=== PATIENT | female | born 1960 | race Two or more races ===

== ENCOUNTER 2023-12-10 13:11 | Inpatient (IN) | payer BC, OTHER ==
[~2023-12-10] VITALS: Ht 170.2 cm; Wt 89.9 kg
[2023-12-10 14:39] LABS: Basophils # (auto) 0.1 10 ^3/uL (0-0.2); Eosinophils # (auto) 0 10 ^3/uL (0-0.8); Lymphocytes # (auto) 1.3 10 ^3/uL (0.4-5.4); Neutrophils # (auto) 6.1 10 ^3/uL (1.6-8.6); Platelet Count (auto) 303 10^3/uL (140-450)
[2023-12-10 14:41] LABS: Basophils % (auto) 0.7 % (0.0-2.0); Eosinophils % (auto) 0.5 % (0.0-7.0); Hematocrit 16.1 % (36.0-46.0); Lymphocytes % (auto) 16.8 % (10.0-50.0); Mean Corpuscular Hemoglobin 17.5 pg (28.0-32.0); Mean Corpuscular Hgb Conc. 28.5 g/dL (32.0-36.0); Mean Corpuscular Volume 61.4 fL (80.0-100.0); Monocytes # (auto) 0.4 10 ^3/uL (0-1.3); Monocytes % (auto) 5.3 % (0.0-12.0); Neutrophils % (auto) 76.7 % (37.0-80.0); Nucleated Red Blood Cells % 0.1 %; Red Blood Cells 2.62 10^6/uL (4.0-5.20)
[2023-12-10 14:50] LABS: Red Cell Distribution Width 22.3 % (11.8-14.3)
[2023-12-10 14:51] LABS: Hemoglobin 4.6 g/dL (12.2-16.2)
[2023-12-10 14:55] LABS: Alanine Aminotransferase 15 U/L (7-40); Alkaline Phosphatase 96 U/L (46-116); Anion Gap 7 (5-15); Aspartate Aminotransferase < 8 U/L (13-40); BUN/Creatinine Ratio 27.7 (10.0-20.0); Blood Urea Nitrogen 26 mg/dL (9-23); Carbon Dioxide 26 mmol/L (20-30); Chloride 109 mmol/L (98-107); Glucose 107 mg/dL (74-106); Magnesium 1.9 mg/dL (1.6-2.6); Potassium 4.3 mmol/L (3.5-5.1); Sodium 142 mmol/L (136-145)
[2023-12-10 14:56] LABS: Albumin 4.1 g/dL (3.2-4.8); Bilirubin, Total 0.4 mg/dL (0.2-1.0)
[2023-12-10 15:26] LABS: Urine Bacteria None Seen /hpf (None Seen)
[2023-12-10 15:33] LABS: Hypochromia Moderate; Ovalocytes FEW; Platelet Estimate Adequate
[2023-12-10 15:38] LABS: Urine Blood Negative /uL (Negative); Urine Clarity Turbid (Clear); Urine Color Yellow (Yellow); Urine Hyaline Cast FEW /lpf (0 - 2); Urine Mucus FEW (None Seen); Urine Protein, UAD TRACE (Negative); Urine Specific Gravity 1.022 (1.001-1.035); Urine Urobilinogen Normal (Negative); Urine WBC 3 /hpf (0 - 5); Urine pH 5.5 (5.0-9.0)
[2023-12-10 18:21] LABS: COVID19 ANTIGEN SOFIA FIA NEGATIVE (NEGATIVE)
[2023-12-10] MEDS ORDERED: MORPHINE SULFATE INJ 2 MG/ml SYRG IV PRN (18:45)
[2023-12-10] MEDS ORDERED: DOCUSATE SOD 100 MG CAP PO PRN (18:45)
[2023-12-10] MEDS ORDERED: diphenhdrAMINE HCL 50 MG/1 ML VL IV PRN (18:45)
[2023-12-10] MEDS ORDERED: NITROGLYCERIN 0.4 MG SL TAB SL PRN (18:45)
[2023-12-10] MEDS ORDERED: ACETAMINOPHEN 325 MG TAB PO PRN (18:45)
[2023-12-10] MEDS ORDERED: ONDANSETRON HCL 4 MG/2 ML VIAL IV PRN (18:45)
[2023-12-10 21:08] VITALS: BP 109/50; PULSE 95; RESP 13; TEMP 99.8
[2023-12-10 21:30] VITALS: BP 111/46; PULSE 94; RESP 16; TEMP 98.6
[2023-12-10 22:29] VITALS: PULSE 91; RESP 21; O2SAT 99
[2023-12-10] MEDS: cefTRIAXone 1GM/50ML D5W 50 ML IV ONE (23:17)
[2023-12-11] VITALS (8 sets, daily range): BP systolic 140–163; BP diastolic 78–97; PULSE 82–90; RESP 16–22; TEMP 97.8–98.8; O2SAT 94–99
[2023-12-11] MEDS: IOHEXOL 300 MG/ML 100ML BOTTLE IJ ONE (05:06)
[2023-12-11 05:55] LABS: Eosinophils # (auto) 0.1 10 ^3/uL (0-0.8); Hemoglobin 7.3 g/dL (12.2-16.2); Mean Corpuscular Volume 70.8 fL (80.0-100.0); Monocytes # (auto) 0.5 10 ^3/uL (0-1.3)
[2023-12-11 05:57] LABS: Basophils # (auto) 0.2 10 ^3/uL (0-0.2); Basophils % (auto) 1.9 % (0.0-2.0); Eosinophils % (auto) 1.5 % (0.0-7.0); Hematocrit 23.9 % (36.0-46.0); Lymphocytes # (auto) 2.1 10 ^3/uL (0.4-5.4); Mean Corpuscular Hemoglobin 21.5 pg (28.0-32.0); Mean Corpuscular Hgb Conc. 30.4 g/dL (32.0-36.0); Monocytes % (auto) 6.1 % (0.0-12.0); Neutrophils # (auto) 5.3 10 ^3/uL (1.6-8.6); Neutrophils % (auto) 64.5 % (37.0-80.0); Nucleated Red Blood Cells % 0.2 %; Platelet Count (auto) 238 10^3/uL (140-450); Red Blood Cells 3.38 10^6/uL (4.0-5.20); White Blood Cell 8.2 10^3/uL (4.4-10.8)
[2023-12-11 06:14] LABS: Albumin 3.8 g/dL (3.2-4.8); Alkaline Phosphatase 84 U/L (46-116); Anion Gap 8 (5-15); BUN/Creatinine Ratio 20.2 (10.0-20.0); Blood Urea Nitrogen 17 mg/dL (9-23); Calcium 8.5 mg/dL (8.7-10.4); Carbon Dioxide 24 mmol/L (20-30); Chloride 111 mmol/L (98-107); Glucose 103 mg/dL (74-106); Potassium 3.7 mmol/L (3.5-5.1); Sodium 143 mmol/L (136-145)
[2023-12-11 06:15] LABS: Aspartate Aminotransferase < 8 U/L (13-40); Bilirubin, Total 0.5 mg/dL (0.2-1.0); Red Cell Distribution Width 28.1 % (11.8-14.3); Total Protein 5.7 g/dL (5.7-8.2)
[2023-12-11 06:20] LABS: Alanine Aminotransferase < 9 U/L (7-40)
[2023-12-11 07:39] LABS: Hypochromia Moderate; Ovalocytes FEW; Platelet Estimate Adequate; Stomatocytes Few
[2023-12-11] MEDS: FAMOTIDINE (10MG/ML) 2ML VL IV SCH (11:00)
[2023-12-11] MEDS: cefTRIAXone 1GM/50ML D5W 50 ML IV SCH (11:00)
[2023-12-11 12:58] LABS: INR 1.06 (0.9-1.15); Partial Thromboplastin Time 21.1 SEC (24.5-34.5); Prothrombin Time 11.2 sec (9.3-11.8)
[2023-12-11] MEDS ORDERED: hydrALAZINE HCL 20 MG/ML VL IV PRN (17:15)
[2023-12-11] MEDS: GOLYTELY 4L KIT PO ONE (18:30)
[2023-12-11] MEDS: SODIUM CHLORIDE 0.9% 1,000 ML IV SCH (18:31)
[2023-12-11] MEDS: PANTOPRAZOLE 40 MG/10 ML VIAL INJ IV SCH (21:32)
[2023-12-12] VITALS (11 sets, daily range): BP systolic 105–154; BP diastolic 55–86; PULSE 82–91; RESP 13–19; TEMP 97.4–98.6; O2SAT 91–98
[2023-12-12] MEDS: MAGNESIUM CITRATE SOLUTION 300 ML BTL PO ONE (05:55)
[2023-12-12] MEDS: GOLYTELY 4L KIT PO ONE (05:56)
[2023-12-12 08:56] LABS: Folate (Folic Acid) 19.13 ng/mL (>5.38)
[2023-12-12 08:57] LABS: Ferritin 2.2 ng/mL (10-291)
[2023-12-12 09:06] LABS: % Iron Saturation 4.4 % (15-50)
[2023-12-12 11:09] LABS: Eosinophils # (auto) 0.2 10 ^3/uL (0-0.8); Lymphocytes # (auto) 1.5 10 ^3/uL (0.4-5.4); Monocytes # (auto) 0.3 10 ^3/uL (0-1.3); Monocytes % (auto) 5.6 % (0.0-12.0); Nucleated Red Blood Cells % 0.1 %; Platelet Count (auto) 254 10^3/uL (140-450)
[2023-12-12 11:12] LABS: Basophils # (auto) 0.1 10 ^3/uL (0-0.2); Basophils % (auto) 1.2 % (0.0-2.0); Eosinophils % (auto) 3.2 % (0.0-7.0); Hematocrit 26.3 % (36.0-46.0); Lymphocytes % (auto) 25.9 % (10.0-50.0); Mean Corpuscular Hemoglobin 21.4 pg (28.0-32.0); Mean Corpuscular Hgb Conc. 30.4 g/dL (32.0-36.0); Mean Corpuscular Volume 70.5 fL (80.0-100.0); Neutrophils # (auto) 3.8 10 ^3/uL (1.6-8.6); Neutrophils % (auto) 64.1 % (37.0-80.0); Red Blood Cells 3.74 10^6/uL (4.0-5.20); Red Cell Distribution Width 28.4 % (11.8-14.3); White Blood Cell 5.9 10^3/uL (4.4-10.8)
[2023-12-12] MEDS: IRON SUCROSE COMPLEX 100 ML IV SCH (11:36)
[2023-12-12] MEDS ORDERED: MIDAZOLAM HCL 2MG/2ML 2ml VIAL (1mg/ml) ONE (13:33)
[2023-12-12] MEDS ORDERED: KETAMINE 50mg/ML 1ml syringe ONE (13:33)
[2023-12-12] MEDS ORDERED: PROPOFOL 10 MG/ML 20 ML IV ONE (13:34)
[2023-12-12] MEDS ORDERED: ONDANSETRON HCL 4 MG/2 ML VIAL ONE (13:34)
[2023-12-12] MEDS ORDERED: GLYCOPYRROLATE 0.2 MG/ML 1ML VIAL ONE (13:34)
[2023-12-12] MEDS ORDERED: LIDOCAINE 2% (LOCAL ANESTH.) PF 5ml SDV ONE (13:34)
[2023-12-12] MEDS ORDERED: fentaNYL CITRATE 100 MCG/2 ML VL ONE (14:12)
[2023-12-13] VITALS (7 sets, daily range): BP systolic 104–126; BP diastolic 57–83; PULSE 69–100; RESP 16–19; TEMP 37.6; O2SAT 93–99
[2023-12-13 06:49] LABS: Alanine Aminotransferase 10 U/L (7-40); Albumin 3.8 g/dL (3.2-4.8); Alkaline Phosphatase 94 U/L (46-116); Anion Gap 3 (5-15); Aspartate Aminotransferase 9 U/L (13-40); BUN/Creatinine Ratio 9.5 (10.0-20.0); Blood Urea Nitrogen 8 mg/dL (9-23); Calcium 8.3 mg/dL (8.7-10.4); Carbon Dioxide 26 mmol/L (20-30); Chloride 113 mmol/L (98-107); Glucose 106 mg/dL (74-106); Sodium 142 mmol/L (136-145)
[2023-12-13 06:50] LABS: Bilirubin, Total 0.5 mg/dL (0.2-1.0); Total Protein 5.6 g/dL (5.7-8.2)
[2023-12-13 07:01] LABS: Hematocrit 24.6 % (36.0-46.0); Hemoglobin 7.4 g/dL (12.2-16.2); Mean Corpuscular Hemoglobin 21.4 pg (28.0-32.0); Mean Corpuscular Hgb Conc. 29.9 g/dL (32.0-36.0); Mean Corpuscular Volume 71.7 fL (80.0-100.0); Platelet Count (auto) 263 10^3/uL (140-450); Red Blood Cells 3.43 10^6/uL (4.0-5.20); White Blood Cell 9.4 10^3/uL (4.4-10.8)
[2023-12-13 07:17] LABS: Red Cell Distribution Width 27.8 % (11.8-14.3)
[2023-12-13 07:19] LABS: Band Neutrophils % (manual) 0; Basophils % (manual) 0 (0.0-2.0); Blast Cells 0; Metamyelocytes % 0; Myelocytes % 0; Promyelocytes % 0; Reactive Lymphocytes 0
[2023-12-13 10:50] LABS: Anisocytosis Moderate; Eosinophils % (manual) 3 (0-7); Hypochromia Moderate; Lymphocytes % (manual) 15 (10.0-50.0); Monocytes % (manual) 3 (0-12); Ovalocytes MODERATE; Platelet Estimate Adequate
[2023-12-13] MEDS ORDERED: FERR1TAB42 PO (14:08)
[2023-12-13] MEDS ORDERED: ACET-1882 PO (14:08)
[2023-12-13] MEDS ORDERED: PANT40T PO (14:08)
== END 2023-12-13 17:40 | disposition home or self-care (01) | DRG 381 ==
LOC: ER 13:11 → TELE 18:48 → TELE-WESTW 12-11 08:30
PROVIDERS: ADMIT Internal Medicine Pulmonary Disease; ATTEND Emergency Medicine
PROC: 30233N1 Transfusion of Nonautologous Red Blood Cells into Peripheral Vein, Percutaneous Approach (ICD-10-PCS; principal; 2023-12-10)
PROC: 0DB98ZX Excision of Duodenum, Via Natural or Artificial Opening Endoscopic, Diagnostic (ICD-10-PCS; 2023-12-12)
PROC: 0DB68ZX Excision of Stomach, Via Natural or Artificial Opening Endoscopic, Diagnostic (ICD-10-PCS; 2023-12-12)
PROC: 3E0H8GC Introduction of Other Therapeutic Substance into Lower GI, Via Natural or Artificial Opening Endoscopic (ICD-10-PCS; 2023-12-12)
PROC: 0DBN8ZX Excision of Sigmoid Colon, Via Natural or Artificial Opening Endoscopic, Diagnostic (ICD-10-PCS; 2023-12-12 13:58)
DX: K22.10 Ulcer of esophagus without bleeding (principal); N39.0 Urinary tract infection, site not specified; D50.9 Iron deficiency anemia, unspecified; K22.2 Esophageal obstruction; K29.70 Gastritis, unspecified, without bleeding; I51.7 Cardiomegaly; E86.0 Dehydration; Z20.822 Contact with and (suspected) exposure to COVID-19; K58.9 Irritable bowel syndrome, unspecified; K31.7 Polyp of stomach and duodenum; K44.9 Diaphragmatic hernia without obstruction or gangrene; Z83.3 Family history of diabetes mellitus; Z80.1 Family history of malignant neoplasm of trachea, bronchus and lung; Z82.49 Family history of ischemic heart disease and other diseases of the circulatory system; Z88.5 Allergy status to narcotic agent; Z79.899 Other long term (current) drug therapy
CPT/HCPCS: 36415; 71045; 74177; 76856; 80053; 81001; 82270; 82378; 82607; 82728; 82746; 83540; 83550; 83605; 83735; 83880; 84484; 85007; 85025; 85027; 85610; 85730; 86850; 86900; 86901; 86920; 87426; 93005; G0378; J1756; J2001; J2250; J2405; J2470; J2704; J3490